=== PATIENT | female | born 1995 | race Caucasian/White ===

== ENCOUNTER 2019-04-23 23:03 | Emergency (ER) | payer OTHER ==
[2019-04-23] MEDS ORDERED: ASPIRIN 81 MG TABLET, CHEWABLE PO ONE (23:49)
--- NOTE | 2019-04-23 23:50 | ER Document Report ---
ED Medical Screen (RME) - General Chief Complaint: Chest Pain Stated Complaint: CHEST PAIN Time Seen by Provider: 04/23/19 23:44 Mode of Arrival: Ambulatory Information source: Patient Notes: 24-year-old female presents emergency department complaints of right-sided chest pain that started approximately 1 hour ago. She reports she was just laying in bed. She describes it as a pressure. Does denies history of cardiac disease. Patient did just moved here from [place] and drove here around April 10. She is unsure if she is . No fever vomiting diarrhea no trauma. Denies drug use. Denies cold medications denies drinking red bowls energy drinks. Patient is very tearful. Has history of anxiety. I have greeted and performed a rapid initial assessment of this patient. A comprehensive ED assessment and evaluation of the patient, analysis of test results and completion of the medical decision making process will be conducted by additional ED providers. Dictation of this chart was performed using voice recognition software; therefore, there may be some unintended grammatical errors.. TRAVEL OUTSIDE OF THE [place] IN LAST 30 DAYS: No Past Medical History - Social History Chew tobacco use (# tins/day): No Frequency of alcohol use: Occasional Drug Abuse: None Physical Exam - Vital signs Vitals: Temp Pulse Resp BP Pulse Ox 99.0 F 108 H 18 148/104 H 98 04/23/19 23:13 04/23/19 23:13 04/23/19 23:13 04/23/19 23:13 04/23/19 23:13 Course - Vital Signs Vital signs: Temp Pulse Resp BP Pulse Ox 99.0 F 108 H 18 148/104 H 98 04/23/19 23:13 04/23/19 23:13 04/23/19 23:13 04/23/19 23:13 04/23/19 23:13
[2019-04-24 00:34] LABS: ABSOLUTE EOSINOPHILS # (AUTO) 0.4 10^3/uL (0.0-0.6); ABSOLUTE MONOCYTES (AUTO) 1.1 10^3/uL (0.1-1.4); ABSOLUTE NEUT (AUTO) 10.1 10^3/uL (1.7-8.2); BASOPHILS % (AUTO) 0.2 % (0-2); EOSINOPHILS % (AUTO) 2.3 % (0-6); HEMATOCRIT 42.7 % (36.0-47.0); HEMOGLOBIN 14.4 g/dL (12.0-15.5); LYMPHOCYTES % (AUTO) 25.8 % (13-45); MEAN CORPUSCULAR HGB CONC 33.8 g/dL (32.0-36.0); MEAN CORPUSCULAR VOLUME 83 fl (80-97); MONOCYTES % (AUTO) 6.9 % (3-13); PLATELET COUNT 242 10^3/uL (150-450); RED BLOOD COUNT 5.14 10^6/uL (3.72-5.28); RED CELL DISTRIBUTION WIDTH 13.3 % (11.5-14.0); SEGMENTED NEUTROPHILS % (AUTO) 64.8 % (42-78); TOTAL CELLS COUNTED % (AUTO) 100 %; WHITE BLOOD COUNT 15.6 10^3/uL (4.0-10.5)
[2019-04-24 00:44] LABS: APPEARANCE,URINE CLEAR; BILIRUBIN,URINE NEGATIVE (NEGATIVE); COLOR,URINE YELLOW; GLUCOSE, URINE NEGATIVE (NEGATIVE); KETONES,URINE NEGATIVE (NEGATIVE); LEUKOCYTE ESTERASE,URINE NEGATIVE (NEGATIVE); NITRITE,URINE NEGATIVE (NEGATIVE); PROTEIN,URINE NEGATIVE (NEGATIVE); URINE SPECIFIC GRAVITY 1.018
[2019-04-24 01:00] LABS: ALBUMIN 4.5 g/dL (3.5-5.0); ALKALINE PHOSPHATASE 85 U/L (38-126); ANION GAP 10 (5-19); ASPARTATE AMINO TRANSFERASE 25 U/L (14-36); BILIRUBIN,DIRECT 0.2 mg/dL (0.0-0.4); BILIRUBIN,TOTAL 0.3 mg/dL (0.2-1.3); BLOOD UREA NITROGEN 9 mg/dL (7-20); CALCIUM 9.8 mg/dL (8.4-10.2); CARBON DIOXIDE 25 mmol/L (22-30); CHLORIDE 105 mmol/L (98-107); GLUCOSE 92 mg/dL (75-110); POTASSIUM 3.8 mmol/L (3.6-5.0); TOTAL PROTEIN 7.7 g/dL (6.3-8.2)
--- NOTE | 2019-04-24 01:01 | RADIOLOGY REPORT (SQ) ---
EXAM DESCRIPTION: X-ray two view chest. CLINICAL HISTORY: 24 years Female, cp COMPARISON: None TECHNIQUE: PA and Lateral views of the chest performed on 04/24/2019 at 12:47 AM FINDINGS: The lungs are well expanded and are clear. The costophrenic sulci are clear. There is no evidence of a pneumothorax. The cardiac silhouette is normal in size. The mediastinal contours are normal. No acute osseous abnormalities are identified. There is dextroscoliosis of the thoracic spine. No focal soft tissue abnormalities are identified. IMPRESSION: No evidence of acute intrathoracic disease. There is dextroscoliosis of the thoracic spine.
--- NOTE | 2019-04-24 02:32 | ER Document Report ---
ED General - General Chief Complaint: Chest Pain Stated Complaint: CHEST PAIN Time Seen by Provider: 04/23/19 23:44 Mode of Arrival: Ambulatory Information source: Patient Notes: 24-year-old female presents emergency department complaints of right-sided chest pain that started approximately 1 hour ago. She reports she was just laying in bed. She describes it as a pressure. Does denies history of cardiac disease. Patient did just moved here from [place] and drove here around April 10. She is unsure if she is . No fever vomiting diarrhea no trauma. Denies drug use. Denies cold medications denies drinking red bulls or energy drinks. Patient is very tearful. Has history of anxiety. TRAVEL OUTSIDE OF THE [place] IN LAST 30 DAYS: No - HPI Onset: Just prior to arrival Onset/Duration: Sudden Quality of pain: Pressure Associated symptoms: None Exacerbated by: Denies Relieved by: Denies Similar symptoms previously: No Recently seen / treated by doctor: No Past Medical History - General Information source: Patient Last Menstrual Period: mar. on bc pill - Social History Smoking Status: Current Every Day Smoker Cigarette use (# per day): Yes Chew tobacco use (# tins/day): No Frequency of alcohol use: Occasional Drug Abuse: None Lives with: Family Family History: Reviewed & Not Pertinent Patient has suicidal ideation: No Patient has homicidal ideation: No Musculoskeletal Medical History: Reports Other - scoliosis Psychiatric Medical History: Reports: Hx Anxiety, Hx Depression Past Surgical History: Reports: Hx Tonsillectomy Review of Systems - Review of Systems Notes: Review HPI for review of systems., All other systems negative Physical Exam - Vital signs Vitals: Temp Pulse Resp BP Pulse Ox 99.0 F 108 H 18 148/104 H 98 04/23/19 23:13 04/23/19 23:13 04/23/19 23:13 04/23/19 23:13 04/23/19 23:13 - Notes Notes: PHYSICAL EXAMINATION: GENERAL: Well-appearing and in no acute distress tearful HEAD: Atraumatic, normocephalic. EYES: Pupils equal round and reactive to light, extraocular movements intact, sclera anicteric, conjunctiva are normal. ENT: nares patent, oropharynx clear without exudates. Moist mucous membranes. NECK: Normal range of motion, supple without lymphadenopathy LUNGS: CTAB and equal. No wheezes rales or rhonchi. HEART: Regular rate and rhythm without murmurs ABDOMEN: Soft, no tenderness. No guarding, no rebound EXTREMITIES: Normal range of motion, no pitting edema. No cyanosis. NEUROLOGICAL: Cranial nerves grossly intact. Normal sensory/motor exams. PSYCH: Normal mood, normal affect. SKIN: Warm, Dry, normal turgor, no rashes or lesions noted Course - Re-evaluation Re-evalutation: 04/24/19 02:35 24-year-old female presents emergency department with complaints of right-sided chest pain that started prior to arrival. Patient is very tearful and anxious. Denies history of cardiac disease. Denies family history of cardiac disease. EKG shows sinus tach, reviewed with Dr. Ben Yan. D-dimer is negative. Patient was instructed on all results. Patient reports she forgot to mention that she has scoliosis in every now and then she will have a bubble from the scoliosis and if felt the same way tonight. She reports chest pain is gone. Patient is happy smiling. She was instructed to follow-up with a primary care provider she was given a list of primary care providers. 04/23/19 00:15 04/23/19 00:15 MCV 83 fl (80-97) 04/23/19 00:15 MCH 28.0 pg (27.0-33.4) 04/23/19 00:15 MCHC 33.8 g/dL (32.0-36.0) 04/23/19 00:15 RDW 13.3 % (11.5-14.0) 04/23/19 00:15 Seg Neutrophils % 64.8 % (42-78) 04/23/19 00:15 Chloride 105 mmol/L (98-107) 04/23/19 00:15 Carbon Dioxide 25 mmol/L (22-30) 04/23/19 00:15 Anion Gap 10 (5-19) 04/23/19 00:15 Est GFR ( Amer) > 60 (>60) 04/23/19 00:15 Glucose 92 mg/dL (75-110) 04/23/19 00:15 Calcium 9.8 mg/dL (8.4-10.2) 04/23/19 00:15 Total Bilirubin 0.3 mg/dL (0.2-1.3) 04/23/19 00:15 AST 25 U/L (14-36) 04/23/19 00:15 Alkaline Phosphatase 85 U/L (38-126) 04/23/19 00:15 Total Protein 7.7 g/dL (6.3-8.2) 04/23/19 00:15 Albumin 4.5 g/dL (3.5-5.0) 04/23/19 00:15 Urine Color YELLOW 04/24/19 00:16 Urine Appearance CLEAR 04/24/19 00:16 Urine pH 8.0 (5.0-9.0) 04/24/19 00:16 Ur Specific [place] 1.018 04/24/19 00:16 Urine Protein NEGATIVE mg/dL (NEGATIVE) 04/24/19 00:16 Urine Glucose (UA) NEGATIVE mg/dL (NEGATIVE) 04/24/19 00:16 Urine Ketones NEGATIVE mg/dL (NEGATIVE) 04/24/19 00:16 Urine Blood NEGATIVE (NEGATIVE) 04/24/19 00:16 Urine Nitrite NEGATIVE (NEGATIVE) 04/24/19 00:16 Ur Leukocyte Esterase NEGATIVE (NEGATIVE) 04/24/19 00:16 Urine WBC (Auto) 1 /HPF 04/24/19 00:16 Urine RBC (Auto) 3 /HPF 04/24/19 00:16 Chest X-Ray 04/23/19 23:49 IMPRESSION: No evidence of acute intrathoracic disease. There is dextroscoliosis of the thoracic spine. - Vital Signs Vital signs: Temp Pulse Resp BP Pulse Ox 98.1 F 90 18 116/81 98 04/24/19 02:46 04/24/19 02:46 04/23/19 23:13 04/24/19 02:46 04/24/19 02:46 - Laboratory Result Diagrams: 04/23/19 00:15 04/23/19 00:15 Laboratory results interpreted by me: 04/23/19 04/24/19 00:15 00:16 WBC 15.6 H Absolute Neuts (auto) 10.1 H Urine Urobilinogen 2.0 H - Diagnostic Test Radiology reviewed: Image reviewed, Reports reviewed - EKG Interpretation by Me EKG shows normal: Sinus rhythm Rate: Normal Rhythm: NSR Additional EKG results interpreted by me: 04/24/19 02:[address] elevation Discharge - Discharge Clinical Impression: Chest pain Qualifiers: Chest pain type: unspecified Qualified Code(s): R07.9 - Chest pain, unspecified Condition: Stable Disposition: HOME, SELF-CARE Instructions: Chest Pain of Unclear Cause ([facility]), Family Physicians / Practices Additional Instructions: *You have been evaluated for chest pain *Follow up with a primary care provider within 1 week for recheck *Return to ED for worsening condition, changes, needs, difficulty breathing,return of chest pain, concerns Monitor your blood pressure. Your blood pressure was elevated today. This may be because you were anxious, in pain or because you need medication. It is important to follow up with your primary care provider for full evaluation. Forms: Elevated Blood Pressure
[2019-04-24 02:54] VITALS: BP 116/81
--- NOTE | 2019-04-24 08:50 | EKG REPORT ---
SEVERITY:- NORMAL ECG - SINUS TACHYCARDIA : Confirmed by: Rosy Anne MD 24-Apr-2019 08:49:21
== END 2019-04-24 03:00 | disposition home or self-care (01) ==
LOC: ER 23:03
DX: R07.89 Other chest pain (principal); M41.9 Scoliosis, unspecified; R00.0 Tachycardia, unspecified; F17.210 Nicotine dependence, cigarettes, uncomplicated; Z79.3 Long term (current) use of hormonal contraceptives
CPT/HCPCS: 36415; 71046; 80053; 81001; 81025; 85025; 85379; 93005; 93010; 99285

== ENCOUNTER 2019-07-20 21:55 | Emergency (ER) | payer OTHER ==
[2019-07-20 22:00] VITALS: BP 143/87
[2019-07-20] MEDS ORDERED: ACETAMINOPHEN 325 MG TABLET PO ONE (22:11)
== END 2019-07-21 00:40 | disposition left against medical advice (07) ==
LOC: ER 21:55
DX: Z53.21 Procedure and treatment not carried out due to patient leaving prior to being seen by health care provider (principal)

== ENCOUNTER 2019-10-03 14:50 | Emergency (ER) | payer OTHER ==
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
[2019-10-03 17:02] LABS: ABSOLUTE EOSINOPHILS # (AUTO) 0.1 10^3/uL (0.0-0.6); ABSOLUTE LYMPHOCYTES (AUTO) 1.7 10^3/uL (0.5-4.7); ABSOLUTE MONOCYTES (AUTO) 0.5 10^3/uL (0.1-1.4); ABSOLUTE NEUT (AUTO) 7.6 10^3/uL (1.7-8.2); EOSINOPHILS % (AUTO) 0.7 % (0-6); HEMATOCRIT 42.5 % (36.0-47.0); HEMOGLOBIN 14.4 g/dL (12.0-15.5); LYMPHOCYTES % (AUTO) 17.5 % (13-45); MEAN CORPUSCULAR HEMOGLOBIN 27.5 pg (27.0-33.4); MEAN CORPUSCULAR HGB CONC 33.8 g/dL (32.0-36.0); MEAN CORPUSCULAR VOLUME 81 fl (80-97); MONOCYTES % (AUTO) 5.5 % (3-13); PLATELET COUNT 189 10^3/uL (150-450); RED BLOOD COUNT 5.23 10^6/uL (3.72-5.28); RED CELL DISTRIBUTION WIDTH 13.7 % (11.5-14.0); SEGMENTED NEUTROPHILS % (AUTO) 76.3 % (42-78); TOTAL CELLS COUNTED % (AUTO) 100 %; WHITE BLOOD COUNT 9.9 10^3/uL (4.0-10.5)
[2019-10-03 17:10] LABS: APPEARANCE,URINE SLIGHTLY-CLOUDY; BILIRUBIN,URINE NEGATIVE (NEGATIVE); COLOR,URINE YELLOW; GLUCOSE, URINE NEGATIVE (NEGATIVE); KETONES,URINE NEGATIVE (NEGATIVE); LEUKOCYTE ESTERASE,URINE SMALL (NEGATIVE); NITRITE,URINE NEGATIVE (NEGATIVE); PROTEIN,URINE 30 mg/dL (NEGATIVE); URINE SPECIFIC GRAVITY 1.026; UROBILINOGEN,URINE NEGATIVE mg/dL (<2.0)
[2019-10-03 17:22] LABS: ALBUMIN 4.2 g/dL (3.5-5.0); ALKALINE PHOSPHATASE 63 U/L (38-126); ANION GAP 9 (5-19); ASPARTATE AMINO TRANSFERASE 18 U/L (14-36); BILIRUBIN,DIRECT 0.3 mg/dL (0.0-0.4); BILIRUBIN,TOTAL 0.3 mg/dL (0.2-1.3); BLOOD UREA NITROGEN 6 mg/dL (7-20); CALCIUM 9.7 mg/dL (8.4-10.2); CARBON DIOXIDE 26 mmol/L (22-30); CHLORIDE 103 mmol/L (98-107); GLUCOSE 133 mg/dL (75-110); POTASSIUM 4.4 mmol/L (3.6-5.0); TOTAL PROTEIN 7.5 g/dL (6.3-8.2)
--- NOTE | 2019-10-03 18:16 | RADIOLOGY REPORT (SQ) ---
EXAM DESCRIPTION: U/S [id number] TRNABD 1GES W/ODOP COMPLETED DATE/TIME: 10/03/2019 4:29 pm REASON FOR STUDY: preg, abd cramps. G1. Established due date 05/02/2020. COMPARISON: None. TECHNIQUE: Transabdominal static and realtime grayscale images acquired of the pelvis. Additional se lected spectral and color Doppler images recorded. All images stored on PACs. bHCG: Pending CLINICAL DATES: Estimated date of delivery 05/02/2020, estimated gestational age 9 weeks 5 days. LIMITATIONS: None. FINDINGS: FETUS: Single Living intrauterine . ULTRASOUND EGA: 9 weeks 4 days ULTRASOUND NOAH: 05/03/2020 EFW: Not applicable less than 20 weeks. CRL: 2.8 cm FHR: 173 beats per minute. SURVEY: No visualized anomalies. AMNIOTIC FLUID: Adequate amount. PLACENTA: Not yet developed due to early gestation. SUBCHORIONIC BLEED: None SIZE OF BLEED: Not applicable. UTERUS: No masses. No anomalies. CERVICAL LENGTH: Not well visualized. RIGHT ADNEXA: Not visualized. No adnexal masses. LEFT ADNEXA: Not visualized. No adnexal masses. FREE FLUID: None. OTHER: No other significant finding. IMPRESSION: Single live intrauterine . EGA 9 weeks 4 days. Trimester of : First trimester - 0 to 13 weeks. TECHNICAL DOCUMENTATION: JOB ID: [id number] [employer]- All Rights Reserved rev Reading location - IP/workstation name: [email or web address]
[2019-10-03 18:59] VITALS: BP 127/87
[2019-10-03] MEDS ORDERED: ACETAMINOPHEN 325 MG TABLET PO ONE (19:15)
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
== END 2019-10-03 19:27 | disposition home or self-care (01) ==
LOC: ER 14:50
DX: O9A.211 Injury, poisoning and certain other consequences of external causes complicating pregnancy, first trimester (principal); S16.1XXA Strain of muscle, fascia and tendon at neck level, initial encounter; S00.93XA Contusion of unspecified part of head, initial encounter; M79.18 Myalgia, other site; Y04.2XXA Assault by strike against or bumped into by another person, initial encounter; Y93.89 Activity, other specified; Y92.481 Parking lot as the place of occurrence of the external cause; O26.891 Other specified pregnancy related conditions, first trimester; R10.2 Pelvic and perineal pain; Z3A.09 9 weeks gestation of pregnancy
CPT/HCPCS: 36415; 76801; 80053; 81001; 84702; 85025; 99284

== ENCOUNTER 2020-03-27 22:18 | Outpatient (CLI) | payer OTHER ==
[2020-03-27 23:11] LABS: APPEARANCE,URINE SLIGHTLY-CLOUDY; BILIRUBIN,URINE NEGATIVE (NEGATIVE); COLOR,URINE YELLOW; GLUCOSE, URINE NEGATIVE (NEGATIVE); KETONES,URINE TRACE mg/dL (NEGATIVE); LEUKOCYTE ESTERASE,URINE TRACE (NEGATIVE); NITRITE,URINE NEGATIVE (NEGATIVE); PROTEIN,URINE 30 mg/dL (NEGATIVE); URINE SPECIFIC GRAVITY 1.021; UROBILINOGEN,URINE NEGATIVE mg/dL (<2.0)
[2020-03-27 23:23] LABS: URINE AMPHETAMINES SCREEN NEGATIVE; URINE BARBITURATES SCREEN NEGATIVE; URINE BENZODIAZEPINES SCREEN NEGATIVE; URINE COCAINE SCREEN NEGATIVE; URINE MARIJUANA (THC) SCREEN NEGATIVE; URINE METHADONE SCREEN NEGATIVE; URINE PHENCYCLIDINE SCREEN NEGATIVE
[2020-03-27] MEDS ORDERED: HYDROXYZINE PAMOATE 50 MG CAPSULE ONE (23:38)
[2020-03-27] MEDS ORDERED: HYDROXYZINE PAMOATE 50 MG CAPSULE PO ONE (23:59)
--- NOTE | 2020-03-28 00:06 | Non Stress Test Report ---
Non Stress Test Datetime Report Generated by CPN: 03/28/2020 00:06 DEMOGRAPHIC EGA NST: 34.4 INDICATION Indication for Study (NST) Other: Labor check MONITORING Monitor Explained: Monitor Explained; Test Explained; Patient Verbalized Understanding Time on Monitor: 03/27/2020 22:55 Time off Monitor: 03/27/2020 23:40 NST INTERVENTIONS NST Interventions: PO Hydration Physician Notified NST: Dr. Tonny BABY A: [id number] BABY A Movement : Present Contraction Frequency : none FHR Baseline : 135-145 Accelerations : 15X15 Decelerations : None NST Review: Meets Criteria for Reactive NST NST Review and Verified By : D Bellavance RN NST Results: Reactive NST REPORT Report Trigger: Send Report
== END 2020-03-27 23:55 | disposition home or self-care (01) ==
LOC: LC 22:18
PROVIDERS: ATTEND Obstetrics & Gynecology
DX: O60.03 Preterm labor without delivery, third trimester (principal); Z3A.34 34 weeks gestation of pregnancy
CPT/HCPCS: 59025; 80307; 81001

== ENCOUNTER 2020-04-02 12:23 | Outpatient (CLI) | payer OTHER ==
--- NOTE | 2020-04-02 13:24 | Non Stress Test Report ---
Non Stress Test Datetime Report Generated by CPN: 04/02/2020 13:24 DEMOGRAPHIC Test Number: 2 EGA NST: 35.3 INDICATION Indication for Study (NST) Other: Repeat NST sent from office VITAL SIGNS Temperature - NST: 99.1 Pulse - NST: 121 RESP - NST: 18 NBPSYS NST: 123 NBPDIA NST: 75 MONITORING Monitor Explained: Monitor Explained; Test Explained; Patient Verbalized Understanding Time on Monitor: 04/02/2020 12:44 Time off Monitor: 04/02/2020 13:23 Time off Monitor: 04/02/2020 13:23 NST Duration: 39 NST INTERVENTIONS NST Interventions: PO Hydration; Reposition Patient Physician Notified NST: J. Prado CNM BABY A: [id number] BABY A Movement : Present Movement : Present Contraction Frequency : none FHR Baseline : 145 FHR Baseline : 145 Accelerations : 15X15 Accelerations : 15X15 Decelerations : None Decelerations : None Variability : Moderate 6-25bpm NST Review: Meets Criteria for Reactive NST NST Review: Meets Criteria for Reactive NST NST Review and Verified By : Annette Norman RN NST Results: Reactive NST Results: Reactive NST REPORT Report Trigger: Send Report
== END 2020-04-02 13:35 | disposition home or self-care (01) ==
LOC: LC 12:23
PROVIDERS: ATTEND Obstetrics & Gynecology
DX: O24.415 Gestational diabetes mellitus in pregnancy, controlled by oral hypoglycemic drugs (principal); Z3A.35 35 weeks gestation of pregnancy; Z79.84 Long term (current) use of oral hypoglycemic drugs; Z87.891 Personal history of nicotine dependence
CPT/HCPCS: 59025

== ENCOUNTER 2020-05-02 23:44 | Inpatient (IN) | payer OTHER ==
[2020-05-02] MEDS ORDERED: DINOPROSTONE 10 MG VAGINAL INSERT.SR PV PRN (23:53)
[2020-05-02] MEDS ORDERED: OXYTOCIN/0.9 % SODIUM CHLORIDE 30 UNIT/500 ML RTUINJ IV PRN (23:53)
[2020-05-02] MEDS ORDERED: RINGERS SOLUTION,LACTATED 1,000 ML IV ONE (23:54)
--- NOTE | 2020-05-03 00:01 | Admission Physical ---
Datetime Report Generated by CPN: 05/03/2020 00:01 CURRENT ADMISSION Hx Assessment: The History has been Reviewed and is Current Chief Complaint: Scheduled Induction of Labor Chief Complaint Other: G1 at 39.5 wks EGA with Preg complicated by A2GDM on Metformin Indication for Induction: Maternal Diabetes Indication for Induction- Other: A2GDM Admit Impression : Induction of Labor Admit Plan: Admit to Unit; Initiate Labor Induction Protocol ALLERGIES Medication Allergies: No Medication Allergies: No Known Allergies (03/27/2020) Latex: No Latex Allergies OBSTETRICAL HISTORY EDC: 05/04/2020 00:00 : 1 Para: 0 Gestational Diabetes: Yes Rh Sensitization: No Incompetent Cervix: No PRISCILLA: No Infertility: No ART Treatment: No Uterine Anomaly: No IUGR: No Hx Previous C/S: No Macrosomia: No Hx Loss/Stillborn: No PIH: No Hx : No Placenta Previa/Abruption: No Depression/PP Depression: Yes PTL/PROM: No Post Hemorrhage: No Current Procedures: Ultrasound; NST SEE RECORDS Alcohol: No Marijuana : No Cocaine: No Other Illicit Drugs: No Cigarettes: Former Smoker. [id number] Cigarette Frequency: 5 - 10 per day Advised to Stop: Yes MEDICAL HISTORY Diabetes: Yes Diabetes Type: Gestational Diabetes Breast Disease: No Hypertension: No Optometric Assistant Surgery: No Heart Disease: No Hosp/Surgery: No Autoimmune Disorder: No Anesthetic Complications: No Kidney Disease: No Abnormal Pap Smear: No Neuro/Epilepsy: No Psychiatric Disorders: Yes Other Medical Diseases: No Hepatitis/Liver Disease: No Significant Family History: No Varicosities/Phlebitis: No Trauma/Violence : No Thyroid Dysfunction: No Medical History Comments: anxiety, hidradenitis suppurativa INFECTIOUS HISTORY Gonorrhea: No Genital Herpes: No Chlamydia: No Syphilis: No HIV/AIDS Exposure: No HPV: No PHYSICAL EXAM General: Normal HEENT: Normal Neurologic: Normal Thyroid: Normal Heart: Normal Lungs: Normal Breast: Normal Back: Normal Abdomen: Normal Genitourinary Exam: Normal Extremities: Normal DTRs: Normal Pelvic Type: Adequate Vital Signs: Reviewed VAGINAL EXAM Dilatation: 2 Effacement: 50 Station: -2 Contraction Comments: Regular MEMBRANES Membranes: Intact FETUS A EGA: 39.5 Monitoring: External US FHR- Baseline: 135 Variability: Moderate 6-25bpm Accelerations: 15X15 Decelerations: None FHR Category: Category I Presentation: Vertex Admit Comment: G1 at 39.5 wks EGA with Preg complicated by A2GDM on Metformin -Admit to LDR -NPO and IVFs: LR at 125 cc/hr after 1 liter bolus -CEFM and toco -Cervix 2/50/-2 , cervidil now -GBS negative -Accuchecks Q 6 hours in latent labor and Q4 in active labor -Anticipate PLANS FOR LABOR AND DELIVERY Labor and Delivery: None Pain Management: Epidural Feeding Preference: Breast INFORMED CONSENT Informed Consent Obtained: Vaginal Delivery; Section Delivery; Induction of Labor; Vacuum/Forceps Assist; Risks, Benefits and Alternatives Discussed Signature: with User ID: [email or web address] : with User ID: [email or web address]
[2020-05-03 00:25] LABS: APPEARANCE,URINE CLOUDY; BILIRUBIN,URINE NEGATIVE (NEGATIVE); COLOR,URINE YELLOW; GLUCOSE, URINE NEGATIVE (NEGATIVE); KETONES,URINE NEGATIVE (NEGATIVE); LEUKOCYTE ESTERASE,URINE MODERATE (NEGATIVE); NITRITE,URINE NEGATIVE (NEGATIVE); PROTEIN,URINE NEGATIVE (NEGATIVE); UROBILINOGEN,URINE NEGATIVE mg/dL (<2.0)
[2020-05-03 00:28] LABS: ABSOLUTE EOSINOPHILS # (AUTO) 0.1 10^3/uL (0.0-0.6); ABSOLUTE LYMPHOCYTES (AUTO) 1.5 10^3/uL (0.5-4.7); ABSOLUTE MONOCYTES (AUTO) 0.4 10^3/uL (0.1-1.4); ABSOLUTE NEUT (AUTO) 6.5 10^3/uL (1.7-8.2); BASOPHILS % (AUTO) 0.1 % (0-2); EOSINOPHILS % (AUTO) 0.7 % (0-6); HEMATOCRIT 36.4 % (36.0-47.0); HEMOGLOBIN 12.3 g/dL (12.0-15.5); LYMPHOCYTES % (AUTO) 17.5 % (13-45); MEAN CORPUSCULAR HEMOGLOBIN 24.3 pg (27.0-33.4); MEAN CORPUSCULAR VOLUME 72 fl (80-97); MONOCYTES % (AUTO) 4.8 % (3-13); PLATELET COUNT 128 10^3/uL (150-450); RED BLOOD COUNT 5.08 10^6/uL (3.72-5.28); RED CELL DISTRIBUTION WIDTH 15.5 % (11.5-14.0); SEGMENTED NEUTROPHILS % (AUTO) 76.9 % (42-78); TOTAL CELLS COUNTED % (AUTO) 100 %; WHITE BLOOD COUNT 8.4 10^3/uL (4.0-10.5)
[2020-05-03 00:34] LABS: ALBUMIN 3.5 g/dL (3.5-5.0); ALKALINE PHOSPHATASE 175 U/L (38-126); ANION GAP 10 (5-19); ASPARTATE AMINO TRANSFERASE 20 U/L (14-36); BILIRUBIN,DIRECT 0.3 mg/dL (0.0-0.4); BILIRUBIN,TOTAL 0.3 mg/dL (0.2-1.3); BLOOD UREA NITROGEN 6 mg/dL (7-20); CALCIUM 9.2 mg/dL (8.4-10.2); CARBON DIOXIDE 18 mmol/L (22-30); CHLORIDE 107 mmol/L (98-107); GLUCOSE 138 mg/dL (75-110); POTASSIUM 4.2 mmol/L (3.6-5.0); TOTAL PROTEIN 6.5 g/dL (6.3-8.2)
[2020-05-03 00:40] LABS: URINE AMPHETAMINES SCREEN NEGATIVE; URINE BARBITURATES SCREEN NEGATIVE; URINE BENZODIAZEPINES SCREEN NEGATIVE; URINE COCAINE SCREEN NEGATIVE; URINE MARIJUANA (THC) SCREEN NEGATIVE; URINE METHADONE SCREEN NEGATIVE; URINE PHENCYCLIDINE SCREEN NEGATIVE
[2020-05-03] MEDS ORDERED: DINOPROSTONE 10 MG VAGINAL INSERT.SR ONE (01:07)
[2020-05-03] MEDS ORDERED: ACETAMINOPHEN 325 MG TABLET PO ONE (07:20)
[2020-05-03] MEDS ORDERED: ACETAMINOPHEN 325 MG TABLET ONE (07:23)
[2020-05-03] MEDS ORDERED: OXYTOCIN/0.9 % SODIUM CHLORIDE 0 UNIT/0 ML RTUINJ ONE (12:39)
[2020-05-03] MEDS: RINGERS SOLUTION,LACTATED 1,000 ML IV PRN ×2 (15:51→19:27)
--- NOTE | 2020-05-03 17:09 | L&D Progress Notes ---
PROGRESS NOTES Datetime Report Generated by CPN: 05/03/2020 17:09 PROGRESS NOTE Impression: Normal Progression of Labor Procedures: Artificial ROM; Scalp Electrode Plan: Continue Present Management; Induction Informed Consent Obtained: Vaginal Delivery; Section Delivery; Induction of Labor; Vacuum/Forceps Assist; Risks, Benefits and Alternatives Discussed Vital Signs : Reviewed Comment: Mother very anxious, breathing fast and crying. She is ready for an epidural now. Will do fluid bolus and cont to monitor status. Report to Dr. Dickinson. VAGINAL EXAM Dilatation: 5 Effacement: 80 Station: -2 Contractions: Regular LAST VAGINAL EXAM-NURSING Nursing Exam Dilitation: 5.0 Nursing Exam Effacement: 80 Nursing Exam Station: -2 Nursing Exam Contractions: UC's tracing inverted MEMBRANES Membranes: Ruptured Amniotic Fluid Color: Clear FETUS A FHR - Baseline: 160 Monitoring: Internal Scalp Electrode Variability: Moderate 6-25bpm FHR Category: Category II FHR Comments: FSE applied : 39.6 Presentation: Vertex SIGNATURE SIGNATURE: [id number];[id number];13,[id number] Assignment: Bob Dickinson MD Signature: with User ID: [email or web address] : with User ID: [email or web address]
[2020-05-03] MEDS ORDERED: EPHEDRINE SULFATE INJ 50 MG/1 ML AMPULE ONE (17:28)
[2020-05-03] MEDS ORDERED: ROPIVACAINE HCL 0.2% INJ/PF (2 MG/ML) 20 ML SDV ONE (17:29)
[2020-05-03] MEDS ORDERED: FENTANYL/BUPIVACAINE/NS/PF 300 MCG/150 ML RTUINJ EPI ONE (17:29)
[2020-05-03] MEDS ORDERED: LIDOCAINE 1% INJ-PF (10 MG/ML) 30 ML SDV ONE (17:31)
[2020-05-03] MEDS ORDERED: MISOPROSTOL 0.2 MG TABLET ONE (17:31)
[2020-05-03] MEDS ORDERED: OXYTOCIN 10 UNIT/ML VIAL ONE (17:31)
[2020-05-03] MEDS ORDERED: OXYTOCIN/0.9 % SODIUM CHLORIDE 30 UNIT/500 ML RTUINJ ONE (17:32)
[2020-05-03] MEDS ORDERED: FAMOTIDINE 20 MG TABLET PO ONE (23:45)
[2020-05-03] MEDS ORDERED: PROMETHAZINE HCL 25 MG TABLET PO PRN (23:46)
[2020-05-03] MEDS ORDERED: PROMETHAZINE HCL INJ 25 MG/1 ML VIAL IV PRN (23:46)
[2020-05-03] MEDS ORDERED: GLYCERIN/WITCH HAZEL LEAF 1 EACH MED..WIPE TP PRN (23:46)
[2020-05-03] MEDS ORDERED: PROMETHAZINE HCL 25 MG SUPP.RECT PR PRN (23:46)
[2020-05-03] MEDS ORDERED: NA PHOS,M-B/NA PHOS,DI-BA (ADULT) 133 ML ENEMA PR PRN (23:46)
[2020-05-03] MEDS ORDERED: MEASLES,MUMPS&RUBELLA VACC/PF 0.5 ML VIAL SUBCUT PRN (23:46)
[2020-05-03] MEDS ORDERED: DIPHENHYDRAMINE HCL 25 MG CAPSULE PO PRN (23:46)
[2020-05-03] MEDS ORDERED: MAGNESIUM HYDROXIDE SUSP 30 ML UDCUP PO PRN (23:46)
[2020-05-03] MEDS ORDERED: PSEUDOEPHEDRINE HCL 30 MG TABLET PO PRN (23:46)
[2020-05-03] MEDS ORDERED: ZOLPIDEM TARTRATE 5 MG TABLET PO PRN (23:46)
[2020-05-03] MEDS ORDERED: ACETAMINOPHEN 650 MG SUPP.RECT PR PRN (23:46)
[2020-05-03] MEDS ORDERED: DIPH/PERTUSS(ACELL)/TETANUS VAC/PF 0.5 ML SYR (>=10YO) IM PRN (23:46)
[2020-05-03] MEDS ORDERED: DIBUCAINE 1% OINTMENT 28 GM TP PRN (23:46)
[2020-05-03] MEDS ORDERED: BENZOCAINE/MENTHOL AEROSOL SPRAY 56 ML TOP PRN (23:46)
[2020-05-04] MEDS ORDERED: OXYTOCIN/0.9 % SODIUM CHLORIDE 30 UNIT/500 ML RTUINJ IV ONE ×2 (00:15→23:46)
--- NOTE | 2020-05-04 01:35 | Warning Signs in Babies ---
VOD Warning Signs Datetime Report Generated by [facility]: 05/04/2020 01:35 VOD#608 -Warning Signs in Babies: Needs to be viewed. (03/27/2020 23:21:Mahsa Mccray RN)
--- NOTE | 2020-05-04 01:36 | Delivery Summary ---
Del Sum A-C Datetime Report Generated by CPN: 05/04/2020 01:36 DELIVERY PERSONNEL DELIVERY PERSONNEL: [id number] Delivery Doctor:: Bob Dickinson MD Labor and Delivery Nurse:: Mahsa Mccray RN Labor and Delivery Nurse:: Kristina Martinez, RNC Nursery Nurse:: Trixie Martinez RNCaron Appliance Service Supervisor/DIRECTOR OF CARDIOPULMONARY SERVICES: Theodora Duff, CIRCUIT COURT CLERK MATERNAL INFORMATION Delivery Anesthesia: Epidural Medications After Delivery: Pitocin 30 Units in 500ml NS/D5W Delivery QBL: 150 Maternal Complications: None LABOR SUMMARY EDC: 05/04/2020 00:00 No. Babies in Womb: 1 Attempted: No Labor Anesthesia: Epidural LABOR INFORMATION Reason for Induction: Maternal Diabetes Onset of Labor: 05/03/2020 08:23 Complete Dilatation: 05/03/2020 22:44 Cervical Ripening Agents: Cervidil Oxytocin: Induction Group B Beta Strep: Negative Steroids Given: None Reason Steroids Not Administered: Not Applicable MEMBRANES Membranes Rupture Method: Spontaneous Rupture of Membranes: 05/03/2020 16:59 Length of Rupture (hr): 6.62 Amniotic Fluid Color: Clear Amniotic Fluid Amount: Small Amniotic Fluid Odor: None STAGES OF LABOR Stage 1 hr: 14 Stage 1 min: 21 Stage 2 hr: 0 Stage 2 min: 52 Stage 3 hr: 0 Stage 3 min: 3 Total Time in Labor hr: 15 Total Time in Labor min: 16 VAGINAL DELIVERY Episiotomy: None Laceration #1: Vaginal Laceration Extension #1: N/A Laceration Repair: Yes Sponge Count Correct: Yes Sharps Count Correct: Yes CSECTION DELIVERY Primary Indication: N/A Secondary Indication: N/A CSection Urgency: N/A CSection Incidence: N/A Labor: N/A Elective: N/A CSection Incision: N/A BABY A INFORMATION Delivery Date/Time: 05/03/2020 23:36 Method of Delivery: Vaginal Nurse Controlled Delivery: No Born in Route : No : N/A Forceps: N/A Vacuum Extraction: N/A Shoulder Dystocia : No PRESENTATION/POSITION BABY A Presentation: Cephalic Cephalic Presentation: Vertex Vertex Position: Left Occipital Anterior Breech Presentation: N/A PLACENTA INFORMATION BABY A Placenta Delivery Time : 05/03/2020 23:39 Placenta Method of Delivery: Spontaneous Placenta Status: Delivered SCORES BABY A Heart Rate 1 min: >100 bpm Resp Effort 1 min: Good Cry Reflex Irritability 1 min: Cough or Sneeze or Pulls Away Muscle Tone 1 min: Active Motion Color 1 min: Body Ringo, Extremities Blue Resuscitation Effort 1 min: Tactile Stimulation SCORE 1 MIN: 9 Heart Rate 5 min: >100 bpm Resp Effort 5 min: Good Cry Reflex Irritability 5 min: Cough or Sneeze or Pulls Away Muscle Tone 5 min: Active Motion Color 5 min: Body Ringo, Extremities Blue Resuscitation Effort 5 min: N/A SCORE 5 MIN: 9 INFANT INFORMATION BABY A Gestational Age at Delivery: 39.6 Gestational Status: Full Term- 39- 40.6 Weeks Infant Outcome : Liveborn Condition : Stable Infant Sex: Female IDENTIFICATION BABY A Verification Date/Time: 05/04/2020 00:00 ID Band Number: [id number] Mother's Name Verified: Yes RN Verifying Infant: Elis Mccray RN/T. Rachaelillin RN WEIGHT/LENGTH BABY A Infant Birthweight (gm): 3569 Infant Weight (lb): 7 Infant Weight (oz): 14 Infant Length (in): 20.00 Length (cm): 50.80 CORD INFORMATION BABY A No. Cord Vessels: 3 Nuchal Cord : Around Neck x1, Loose Cord Blood Taken: Yes-For Eval (Mom's Blood Type - or O+) Infant Suction: Mouth; Nose ASSESSMENT BABY A Complications: Multiple Variable Decels Physical Findings at Delivery: Other Physical Findings- Other: see nursery assessment Respirations: Appears Normal Skin to Skin: Yes Printing Roller Polisher/ALS Called : No Infant Care By: Trixie Martinez RNC Transferred To: Remains with Mother BABY B INFORMATION : N/A SIGNATURES Signature: with User ID: [email or web address] : I was personally available for consultation and serving as supervising physician for the MLP.
--- NOTE | 2020-05-04 01:36 | Birth Certificate Data ---
Cert Data Datetime Report Generated by MARCELO: 05/04/2020 01:36 CERTIFICATE DATA 47a. Care: Yes (03/27/2020 23:21:Miriam Segura RN) 47b. Date of First Visit: 09/23/2019 00:00 (03/27/2020 23:21:Miriam Segura RN) 47c. Date of Last Visit: 04/30/2020 00:00 (03/27/2020 23:21:Miriam Segura RN) 47d. Number of Visits: 14 (03/27/2020 23:21:Miriam Segura RN) 48a. Number of Prev Live Births: 0 (03/27/2020 23:21:Miriam Segura RN) 48b. Now Livin (03/27/2020 23:21:Miriam Segura RN) 48c. Live Births Now : 0 (03/27/2020 23:21:QS system process) 48e. Losses: 0 (03/27/2020 23:21:Miriam Segura RN) RISK FACTORS IN THIS 49a. Diabetes: Yes (03/27/2020 23:21:Meseret Colbert RN) Type of Diabetes: Gestational Diabetes (03/27/2020 23:21:Meseret Colbert RN) 49b. Hypertension: No (03/27/2020 23:21:Meseret Colbert RN) 49c. Previous Births: 0 (03/27/2020 23:21:Miriam Segura RN) 49d. Stillborns: No (03/27/2020 23:21:Meseret Colbert RN) 49d. IUGR: No (03/27/2020 23:21:Meseret Colbert RN) 49e. Infertility Treatment: No (03/27/2020 23:21:Meseret Colbert RN) 49f. Previous Cesareans: 0 (03/27/2020 23:21:Miriam Segura RN) Mother's Height 50b. Height Inches: 69 (05/03/2020 13:58:QS system process) Mother's Weight 51a. Pre- Weight (lbs): 260 (03/27/2020 23:21:Miriam Segura RN) 51b. Weight at Delivery (lbs): 273 (05/03/2020 13:58:QS system process) Infections Present/Treated 53a. Gonorrhea: No (03/27/2020 23:21:Meseret Colbert RN) Results this Hospital Visit : Negative (03/27/2020 23:21:Miriam Segura RN) 53b. Syphilis: No (03/27/2020 23:21:Meseret Colbert RN) Results this Hospital Visit: NONREACTIVE (05/03/2020 00:06:QS system process) 53c. Chlamydia: No (03/27/2020 23:21:Meseret Colbert RN) Results this Hospital Visit: Negative (03/27/2020 23:21:Miriam Segura RN) 53d. Hepatitis B: No (03/27/2020 23:21:Mateo Burton RN) Results this Hospital Visit: Negative (03/27/2020 23:21:Miriam Segura RN) 53e. Hepatitis C: Negative (03/27/2020 23:21:Miriam Segura RN) 53h. Mother Tested for HBsAG: Yes (03/27/2020 23:21:Miriam Segura RN) 53i. Date Tested: 09/23/2019 00:00 (03/27/2020 23:21:Miriam Segura RN) 53j. Test Result: Negative (03/27/2020 23:21:Miriam Segura RN) Obstetric Procedures 54a, b, c. Obstetric Procedures: Ultrasound; NST (03/27/2020 23:21:Meseret Colbert RN) Cigarette Smoking Cigarette Smoking: Former Smoker. [id number] (03/27/2020 23:21:Meseret Colbert RN) 55a. 3 Months Before Preg - Ci (03/27/2020 23:21:Meseret Colbert RN) 55b. 1st Trimester of Preg- Ci (03/27/2020 23:21:Meseret Colbert RN) 55b. Packs: 0 (03/27/2020 23:21:Mateo Burton RN) 55c. 2nd Trimester of Preg- Ci (03/27/2020 23:21:Meseret Colbert RN) 55c. Packs: 0 (03/27/2020 23:21:Mateo Burton RN) 55d. 3rd Trimester of Preg- Ci (03/27/2020 23:21:Meseret oClbert RN) 55d. Packs: 0 (03/27/2020 23:21:Mateo Burton RN) Onset of Labor 56a. PROM >12 Hrs: 6.62 (03/27/2020 23:21:QS system process) 56b. Precipitous Labor <3 Hrs: 15 (03/27/2020 23:21:QS system process) 56c. Prolonged Labor > 20 Hrs: 15 (03/27/2020 23:21:QS system process) 57a. Induction of Labor: Induction (03/27/2020 23:21:Shanelle Myers RN) 57a. Induction of Labor: Cervidil (05/03/2020 01:15:Mateo Burton RN) 57c. Non-Vertex Presentation A: Vertex (03/27/2020 23:21:Mahsa Mccray RN) 57d. Steroids - Lung Mat: None (03/27/2020 23:21:Shanelle Myers RN) 57d. Steroids - Lung Mat: Not Applicable (03/27/2020 23:21:Shanelle Myers RN) 57f. Mat [place] or Temp >100.4: 99.3 (03/27/2020 23:21:Mahsa Mccray RN) 57g. Moderate/Heavy Meconium: Clear (05/03/2020 16:59:Shanelle Myers RN) 57h. Intolerance of Labor: N/A (03/27/2020 23:21:Mahsa Mccray RN) : N/A (03/27/2020 23:21:Mahsa Mccray RN) 57i. Epidural/Spinal Anesthesia: Epidural (03/27/2020 23:21:Shanelle Myers RN) Method of Delivery 58a. Forceps - Unsuccessful A: N/A (03/27/2020 23:21:Mahsa Mccray RN) 58b. Vacuum - Unsuccessful A: N/A (03/27/2020 23:21:Mahsa Mccray RN) 58c. Presentation at 58c. Presentation at - A : Vertex (03/27/2020 23:21:Mahsa Mccray RN) 58c. Presentation at - A : N/A (03/27/2020 23:21:Mahsa Mccray RN) 58c. Presentation at - A : Cephalic (05/03/2020 22:20:Mahsa Mccray RN) Final Route and Method of Del 58d. Baby A Route/Delivery: Vaginal (05/03/2020 23:36:Mahsa Mccray RN) 58e. Trial of Labor Attempted: No (03/27/2020 23:21:Shanelle Myers RN) 58e. Trial of Labor Attempted A: N/A (03/27/2020 23:21:Shanelle Myers RN) 58e. Trial of Labor Attempted B: N/A (03/27/2020 23:21:Shanelle Myers RN) Maternal Morbidity 59b. 3rd or 4th Degree Lacs: Vaginal (03/27/2020 23:21:Mahsa Mccray RN) 59b. 3rd or 4th Degree Lacs: N/A (03/27/2020 23:21:Mahsa Mccray RN) Birthweight Baby A: 3569 (03/27/2020 23:21:Mahsa Mccray RN) 60a. Pounds : 7 (03/27/2020 23:21:QS system process) 60b. Ounces: 14 (03/27/2020 23:21:QS system process) 61. GA at Delivery Baby A: 39.6 (03/27/2020 23:21:Mahsa Mccray RN) : Full Term- 39- 40.6 Weeks (03/27/2020 23:21:QS system process) 62a. 5 Minute Baby A: 9 (03/27/2020 23:21:QS system process)
[2020-05-04] MEDS ORDERED: ACETAMINOPHEN WITH CODEINE #3 TABLET ONE (02:01)
[2020-05-04] MEDS: ACETAMINOPHEN WITH CODEINE #3 TABLET PO PRN ×3 (02:05→15:29)
[2020-05-04] MEDS: IBUPROFEN 800 MG TABLET PO SCH ×3 (05:35→21:58)
[2020-05-04 06:50] LABS: HEMATOCRIT 32.8 % (36.0-47.0); HEMOGLOBIN 11.2 g/dL (12.0-15.5); MEAN CORPUSCULAR HEMOGLOBIN 24.4 pg (27.0-33.4); MEAN CORPUSCULAR HGB CONC 34.1 g/dL (32.0-36.0); MEAN CORPUSCULAR VOLUME 71 fl (80-97); PLATELET COUNT 112 10^3/uL (150-450); RED CELL DISTRIBUTION WIDTH 15.7 % (11.5-14.0); WHITE BLOOD COUNT 12.1 10^3/uL (4.0-10.5)
[2020-05-04] MEDS: DOCUSATE SODIUM 100 MG CAPSULE PO SCH ×2 (09:59→18:22)
[2020-05-04] MEDS: FERROUS SULFATE 325 MG TABLET PO SCH ×2 (09:59→18:22)
[2020-05-04] MEDS: PRENATAL VITAMIN W DHA CAPSULE PO SCH (10:00)
[2020-05-04] MEDS: SENNOSIDES/DOCUSATE 8.6-50 MG 1 EACH TABLET PO SCH (10:00)
[2020-05-04] MEDS: FAMOTIDINE 20 MG TABLET PO SCH ×2 (10:02→21:58)
--- NOTE | 2020-05-04 10:14 | PDOC PROGRESS REPORT ---
Subjective-OB Progress Note for:: 05/04/20 Subjective: reports bleeding slowing, pain controlled with current meds. c/o burning on urination that is not associated with urinating on her stitches. she thinks she has UTI. will treat as UTI, urine culture ordered. Physical Exam (OB) Vital Signs: Temp Pulse Resp BP Pulse Ox 98.6 F 124 H 18 134/71 H 98 05/04/20 03:58 05/04/20 03:58 05/04/20 03:58 05/04/20 03:58 05/04/20 03:58 Intake & Output 05/03/20 05/04/20 05/05/20 06:59 06:59 06:59 Intake Total 450 1120 Balance 450 1120 Weight 123.5 kg 117.7 kg - Maternal Morbidity 59. Maternal Morbidity (serious complications experinced by the mother associated with labor and delivery: None of the above - Abdomen Description: Soft Hernia Present: No Fundal Description: Firm, Midline Fundal Height: u/u - u/2 - Abdominal Distension: No distension Tenderness: Nontender - Extremities Lower extremities: Samara's sign - neg Calf: Normal, Nontender Objective-Diagnostic Laboratory: 05/04/20 06:38 05/03/20 00:06 05/04/20 06:38 WBC 12.1 H RBC 4.60 Hgb 11.2 L Hct 32.8 L MCV 71 L MCH 24.4 L MCHC 34.1 RDW 15.7 H Plt Count 112 L Assessment and Plan(PN) - Assessment and Plan (1) Normal vaginal delivery Is this a current diagnosis for this admission?: Yes (2) Obstetrical laceration Is this a current diagnosis for this admission?: Yes (3) Gestational diabetes Is this a current diagnosis for this admission?: Yes (4) Encounter for induction of labor Is this a current diagnosis for this admission?: Yes - Time Spent with Patient Time with patient: Less than 15 minutes Medications reviewed and adjusted accordingly: Yes - Disposition Anticipated Discharge Disposition: Home, Self Care Anticipated Discharge Timeframe: within 24 hours
[2020-05-04] MEDS: PHENAZOPYRIDINE HCL 200 MG TABLET PO SCH ×3 (12:15→21:58)
[2020-05-04] MEDS: NITROFURANTOIN MONOHYD/M-CRYST 100 MG CAPSULE PO SCH ×2 (12:15→18:22)
[2020-05-04] MEDS ORDERED: PHENAZOPYRIDINE HCL 100 MG TABLET PO SCH (14:00)
--- NOTE | 2020-05-04 18:01 | EKG REPORT ---
SEVERITY:- OTHERWISE NORMAL ECG - SINUS TACHYCARDIA : Confirmed by: Disha Cruz 04-May-2020 18:00:24
[2020-05-04] MEDS ORDERED: FLUCONAZOLE 100 MG TABLET PO ONE (21:00)
[2020-05-05] MEDS: PHENAZOPYRIDINE HCL 200 MG TABLET PO SCH (05:26)
[2020-05-05] MEDS: IBUPROFEN 800 MG TABLET PO SCH (05:26)
[2020-05-05] MEDS: PRENATAL VITAMIN W DHA CAPSULE PO SCH (10:06)
[2020-05-05] MEDS: SENNOSIDES/DOCUSATE 8.6-50 MG 1 EACH TABLET PO SCH (10:06)
[2020-05-05] MEDS: FERROUS SULFATE 325 MG TABLET PO SCH (10:06)
[2020-05-05] MEDS: DOCUSATE SODIUM 100 MG CAPSULE PO SCH (10:06)
[2020-05-05] MEDS: NITROFURANTOIN MONOHYD/M-CRYST 100 MG CAPSULE PO SCH (10:06)
[2020-05-05] MEDS: FAMOTIDINE 20 MG TABLET PO SCH (10:06)
--- NOTE | 2020-05-05 10:54 | PDOC DISCHARGE SUMMARY ---
Impression - Admit/DC Date/PCP Admission Date/Primary Care Provider: 05/02/20 23:44 SHANTE EASON MD Discharge Date: 05/05/20 - Discharge Diagnosis (1) Normal vaginal delivery Is this a current diagnosis for this admission?: Yes (2) Obstetrical laceration Is this a current diagnosis for this admission?: Yes (3) Gestational diabetes Is this a current diagnosis for this admission?: Yes (4) Encounter for induction of labor Is this a current diagnosis for this admission?: Yes - Additional Information Discharge Diet: Regular Discharge Activity: Balance Activity w/Rest, Pelvic Rest Referrals: SHANTE EASON MD [Primary Care Provider] - Prescriptions: Nitrofurantoin Monohyd/M-Cryst [Macrobid 100 mg Capsule] 100 mg PO BID #14 capsule Ibuprofen [Motrin 800 mg Tablet] 800 mg PO Q8HP PRN #60 tablet PRN Reason: Home Medications: No122/Iron/Folic Acid [ Multi Tablet] 1 tab PO DAILY 04/02/20 Ibuprofen [Motrin 800 mg Tablet] 800 mg PO Q8HP PRN #60 tablet 05/05/20 Nitrofurantoin Monohyd/M-Cryst [Macrobid 100 mg Capsule] 100 mg PO BID #14 capsule 05/05/20 Hospital Course 59. Maternal Morbidity (serious complications experinced by the mother associated with labor and delivery: None of the above Results Laboratory Results: WBC 12.1 10^3/uL (4.0-10.5) H 05/04/20 06:38 RBC 4.60 10^6/uL (3.72-5.28) 05/04/20 06:38 Hgb 11.2 g/dL (12.0-15.5) L 05/04/20 06:38 Hct 32.8 % (36.0-47.0) L 05/04/20 06:38 MCV 71 fl (80-97) L 05/04/20 06:38 MCH 24.4 pg (27.0-33.4) L 05/04/20 06:38 MCHC 34.1 g/dL (32.0-36.0) 05/04/20 06:38 RDW 15.7 % (11.5-14.0) H 05/04/20 06:38 Plt Count 112 10^3/uL (150-450) L 05/04/20 06:38 Lymph % (Auto) 17.5 % (13-45) 05/03/20 00:06 [place] % (Auto) 4.8 % (3-13) 05/03/20 00:06 Eos % (Auto) 0.7 % (0-6) 05/03/20 00:06 Baso % (Auto) 0.1 % (0-2) 05/03/20 00:06 Absolute Neuts (auto) 6.5 10^3/uL (1.7-8.2) 05/03/20 00:06 Absolute Lymphs (auto) 1.5 10^3/uL (0.5-4.7) 05/03/20 00:06 Absolute Monos (auto) 0.4 10^3/uL (0.1-1.4) 05/03/20 00:06 Absolute Eos (auto) 0.1 10^3/uL (0.0-0.6) 05/03/20 00:06 Absolute Basos (auto) 0.0 10^3/uL (0.0-0.2) 05/03/20 00:06 Seg Neutrophils % 76.9 % (42-78) 05/03/20 00:06 Sodium 135.3 mmol/L (137-145) L 05/03/20 00:06 Potassium 4.2 mmol/L (3.6-5.0) 05/03/20 00:06 Chloride 107 mmol/L (98-107) 05/03/20 00:06 Carbon Dioxide 18 mmol/L (22-30) L 05/03/20 00:06 Anion Gap 10 (5-19) 05/03/20 00:06 BUN 6 mg/dL (7-20) L 05/03/20 00:06 Creatinine 0.38 mg/dL (0.52-1.25) L 05/03/20 00:06 Est GFR ( Amer) > 60 (>60) 05/03/20 00:06 Est GFR (MDRD) Non-Af > 60 (>60) 05/03/20 00:06 Glucose 138 mg/dL (75-110) H 05/03/20 00:06 POC Glucose 101 mg/dL (70-110) 10/15/20 18:19 Calcium 9.2 mg/dL (8.4-10.2) 05/03/20 00:06 Total Bilirubin 0.3 mg/dL (0.2-1.3) 05/03/20 00:06 Direct Bilirubin 0.3 mg/dL (0.0-0.4) 05/03/20 00:06 Neonat Total Bilirubin Not Reportable 05/03/20 00:06 Neonat Direct Bilirubin Not Reportable 05/03/20 00:06 Neonat Indirect Bili Not Reportable 05/03/20 00:06 AST 20 U/L (14-36) 05/03/20 00:06 ALT 11 U/L (<35) 05/03/20 00:06 Alkaline Phosphatase 175 U/L (38-126) H 05/03/20 00:06 Total Protein 6.5 g/dL (6.3-8.2) 05/03/20 00:06 Albumin 3.5 g/dL (3.5-5.0) 05/03/20 00:06 Urine Color YELLOW 05/03/20 00:10 Urine Appearance CLOUDY 05/03/20 00:10 Urine pH 7.0 (5.0-9.0) 05/03/20 00:10 Ur Specific [place] 1.010 05/03/20 00:10 Urine Protein NEGATIVE mg/dL (NEGATIVE) 05/03/20 00:10 Urine Glucose (UA) NEGATIVE mg/dL (NEGATIVE) 05/03/20 00:10 Urine Ketones NEGATIVE mg/dL (NEGATIVE) 05/03/20 00:10 Urine Blood NEGATIVE (NEGATIVE) 05/03/20 00:10 Urine Nitrite NEGATIVE (NEGATIVE) 05/03/20 00:10 Urine Bilirubin NEGATIVE (NEGATIVE) 05/03/20 00:10 Urine Urobilinogen NEGATIVE mg/dL (<2.0) 05/03/20 00:10 Ur Leukocyte Esterase MODERATE (NEGATIVE) H 05/03/20 00:10 Urine Ascorbic Acid NEGATIVE (NEGATIVE) 05/03/20 00:10 Urine Opiates Screen NEGATIVE 05/03/20 00:10 Urine Methadone Screen NEGATIVE 05/03/20 00:10 Ur Barbiturates Screen NEGATIVE 05/03/20 00:10 Ur Phencyclidine Scrn NEGATIVE 05/03/20 00:10 Ur Amphetamines Screen NEGATIVE 05/03/20 00:10 U Benzodiazepines Scrn NEGATIVE 05/03/20 00:10 Urine Cocaine Screen NEGATIVE 05/03/20 00:10 U Marijuana (THC) Screen NEGATIVE 05/03/20 00:10 RPR NONREACTIVE (NONREACTIVE) 05/03/20 00:06 Blood Type O POSITIVE 05/03/20 00:06 Antibody Screen NEGATIVE 05/03/20 00:06 Plan Plan of Treatment: follow up in 4 weeks at [facility] for post check
[2020-05-05 11:13] VITALS: BP 134/78
== END 2020-05-05 12:19 | disposition home or self-care (01) | DRG 807 ==
LOC: LR 23:44 → 2S 05-04 02:23
PROVIDERS: ADMIT Obstetrics & Gynecology; ATTEND Obstetrics & Gynecology Gynecology
PROC: 10E0XZZ Delivery of Products of Conception, External Approach (ICD-10-PCS; principal; 2020-05-03)
PROC: 0HQ9XZZ Repair Perineum Skin, External Approach (ICD-10-PCS; 2020-05-03)
DX: O24.425 Gestational diabetes mellitus in childbirth, controlled by oral hypoglycemic drugs (principal); O69.81X0 Labor and delivery complicated by cord around neck, without compression, not applicable or unspecified; O70.0 First degree perineal laceration during delivery; Z37.0 Single live birth; O76 Abnormality in fetal heart rate and rhythm complicating labor and delivery; Z3A.39 39 weeks gestation of pregnancy; O99.334 Smoking (tobacco) complicating childbirth; F17.210 Nicotine dependence, cigarettes, uncomplicated; R30.9 Painful micturition, unspecified
CPT/HCPCS: 1967; 36415; 80053; 80307; 81005; 82962; 85025; 85027; 86592; 86850; 86900; 86901; 87086; 93005; 93010; 94760; J2590; J2795; J3010; J3490; J8499